=== PATIENT | male | born 1935 | race African-American/Black ===

== ENCOUNTER → 2016-10-06 | Outpatient (CLI) | payer OTHER, MEDICAID ==
[2016-04-16 23:15] VITALS: BP 187/81
--- NOTE | 2016-10-06 12:30 | RAD ---
HISTORY: Abdominal pain Study: Acute abdomen series Comparison: 03/15/2016 Findings: Frontal view of the chest demonstrates chronic sternotomy changes and a right subclavian port cathet er in stable position. Lung volumes are reduced bibasilar atelectasis. No new infiltrate or pneumoth orax. No gross free intraperitoneal air. There are scattered air-fluid levels seen within the large bowel on the upright view as well as some air-fluid levels within small bowel loops. No dilated loops are seen. Mild fecal retention in the rectum. No abnormal calcifications or soft tissue mass identified. There is a stent projected over the mid abdomen. IMPRESSION: 1. Scattered air-fluid levels seen within the small and large bowel without evidence of intestinal o bstruction may reflect ileus/enteritis. 2. Fecal retention in the rectum. Reported By:
== END ==
LOC: RAD 11:57
PROVIDERS: ATTEND Internal Medicine
DX: R10.84 Generalized abdominal pain (principal)
CPT/HCPCS: 74022

== ENCOUNTER 2016-10-07 10:58 | Emergency (ER) | payer OTHER, MEDICAID ==
[2016-10-07 11:25] VITALS: BMI 25.4
[2016-10-07] MEDS ORDERED: DEMEROL INJ IM ONE (11:28)
--- NOTE | 2016-10-07 11:31 | DR.GENAD ---
HPI - PCP Primary Care Physician: goff - Complaint/Symptoms Chief Complaint:: patient stated his abd has been hurting for over a week. enema was done last night by [facility] staff. patient does have a history of pancreatic cancer. - Nurses notes reviewed Nurses Notes Review: Yes - Source History Provided: Patient - Mode of Arrival Mode of Arrival: Ambulatory - Timing Onset of Chief Complaint: 09/27/16 Came on: Gradually - Duration Duration: Intermittent How lon Duration: Days - Location Location: epigastric - Severity Severity: Moderate - Associated Signs and Symptoms Associated Signs and Symptoms: no vomiting PMH - PMH Past Medical History: Yes Past Medical History: Anemia, Coronary Artery Disease, Depression, Diabetes, Dyslipidemia Past Surgical History: Yes Surgical History: CABG/Valve Surgery, Other - Family History History of Family Medical Conditions: Yes Family Medical History: Diabetes Mellitus, Hypertension - Social History Does patient currently use any type of tobacco product: No Have you used tobacco products in the last 12 months: No Type of Tobacco Use: None Does any household member use tobacco: No Alcohol Use: None Do you use any recreational Drugs:: No Lives With: Family Lives Where: Residential - infectious screening In the last 2 months have you had wt loss of >10#?: NO Have you had fever, night sweats or hemotysis?: No Have you traveled outside the country in the last 6 months?: No Isolation: Standard ROS - Review of Systems Constitutional: No Symptoms Reported Eyes: No Symptoms Reported ENTM: No Symptoms Reported Respiratoy: No Symptoms Reported Cardiovascular: No Symptoms Reported Gastrointestinal/Abdominal: Abdominal Pain Genitourinary: No Symptoms Reported Neurological: No Symptoms Reported Musculoskeletal: No Symptoms Reported Integumentary: No Symptoms Reported Hematologic/Lymphatic: No Symptoms Reported Endocrine: No Symptoms Reported Psychiatric: Depression PE - Vital Signs Vitals: Temperature 97.5 F Pulse Rate 75 Respiratory Rate 16 Blood Pressure [Left Arm] 187/81 Blood Pressure [Right Arm] 121/59 Blood Pressure 154/77 O2 Sat by Pulse Oximetry 99 - General Limitations: No Limitations General Appearance: Alert, In No Apparent Distress - Head Head Exam: Normal Inspection - Eyes Eye exam: Normal Appearance, EOMI. negative: Scleral Icterus, Conjunctival Injection - ENT ENT Exam: Normal Exam, Normal Oropharynx External Ear Exam: Normal External Inspection Throat Exam: Normal Inspection - Neck Neck Exam: Normal Inspection, Full ROM, Trachea Midline - Chest Chest Inspection: Normal Inspection - Respiratory Respiratory Exam: Normal Lung Sounds Bilat. negative: Accessory Muscle Use, Respiratory Distress Respiratory Exam: Bilateral Clear to Auscultation - Cardiovascular Cardiovascular Exam: Regular Rate - Abdominal Exam Abdominal Exam: Soft, Distention, Tenderness (epigastric pain). negative: Guarding - Extremities Extremities Exam: Normal Inspection, Full ROM - Back Back Exam: Normal Inspection - Neurologic Neurological Exam: Alert, Oriented X3, CN II-XII Intact - Psychiatric Psychiatric Exam: Depressed - Skin Skin Exam: Intact, Normal Color ROR - Labs Reviewed Result Diagrams: 10/07/16 12:21 10/07/16 12:21 Laboratory: WBC 8.3 X10^3/uL (3.6-10.0) 10/07/16 12:21 RBC 3.37 X10^6/uL (4.7-6.0) L 10/07/16 12:21 Hgb 10.0 g/dL (13.5-18.0) L 10/07/16 12:21 Hct 30.9 % (42.0-54.0) L 10/07/16 12:21 MCV 91.8 fL (80.0-100.0) 10/07/16 12:21 MCH 29.8 pg (27.0-34.0) 10/07/16 12:21 MCHC 32.4 g/dL (33.0-35.0) L 10/07/16 12:21 RDW 13.5 % (11.6-16.5) 10/07/16 12:21 Plt Count 206 X10^3/uL (150.0-450.0) 10/07/16 12:21 MPV 10.2 fL (7.4-11.0) 10/07/16 12:21 Neut % 62.2 % (42.0-75.0) 10/07/16 12:21 Lymph % 22.7 % (21.0-51.0) 10/07/16 12:21 [place] % 12.5 % (0.0-13.0) 10/07/16 12:21 Eos % 1.3 % (0.9-2.9) 10/07/16 12:21 Baso % 1.3 % (0.2-1.0) H 10/07/16 12:21 Neut # 5.1 x10^3/uL (2.2-4.8) H 10/07/16 12:21 Lymph # 1.9 X10^3/uL (1.3-2.9) 10/07/16 12:21 [place] # 1.0 x10^3/uL (0.3-0.8) H 10/07/16 12:21 Eos # 0.1 x10^3/uL (0.0-0.2) 10/07/16 12:21 Baso # 0.1 X10^3/uL (0.0-0.1) 10/07/16 12:21 Absolute Nucleated RBC 0.0 /100WBC 10/07/16 12:21 Sodium 137 mmol/L (136-145) 10/07/16 12:21 Corrected Sodium 141 mmol/L (136-145) 10/07/16 12:21 Potassium 4.8 mmol/L (3.5-5.1) 10/07/16 12:21 Chloride 105 mmol/L (98-107) 10/07/16 12:21 Carbon Dioxide 19.9 mmol/L (21-32) L 10/07/16 12:21 BUN 60 mg/dL (7-18) H 10/07/16 12:21 Creatinine 2.78 mg/dL (0.70-1.30) H 10/07/16 12:21 Est GFR (MDRD) Af Amer 28 (>60) L 10/07/16 12:21 Est GFR (MDRD) Non-Af 24 (>60) L 10/07/16 12:21 Glucose 267 mg/dL (65-99) H 10/07/16 12:21 Calcium 9.1 mg/dL (8.5-10.1) 10/07/16 12:21 Corrected Calcium 10.1 mg/dL (8.5-10.1) 10/07/16 12:21 Total Bilirubin 0.40 mg/dL (0.2-1.0) 10/07/16 12:21 AST 18 Units/L (15-37) 10/07/16 12:21 ALT 22 Units/L (12-78) 10/07/16 12:21 Alkaline Phosphatase 93 Units/L (46-116) 10/07/16 12:21 Total Protein 7.6 g/dL (6.4-8.2) 10/07/16 12:21 Albumin 2.8 g/dL (3.4-5.0) L 10/07/16 12:21 Globulin 4.8 g/dL (2.5-4.5) H 10/07/16 12:21 Albumin/Globulin Ratio 0.6 Ratio (1.1-2.1) L 10/07/16 12:21 - XRAY XRAY Interpreted by: Radiologist XRAY Findings: AAS: no free air, no airfluid levels - Diagnosis Discharge Problem: Abdominal pain Qualifiers: Abdominal location: epigastric Qualified Code(s): R10.13 - Epigastric pain - Discharge Plan Condition: Stable - Follow ups/Referrals Follow ups/Referrals: SOMMER GOFF [Primary Care Provider] - 3 days - Instructions
[2016-10-07] MEDS ORDERED: DEMEROL INJ ONE (11:34)
--- NOTE | 2016-10-07 12:09 | RAD ---
HISTORY: Abdominal pain Study: Acute abdominal series Comparison: None Findings: The trachea is midline. The cardiac silhouette is unremarkable. The lungs are clear without focal infiltrate or effusion. The bony thorax is unremarkable. There is a port present on the right. The patient is status post median sternotomy and CABG. Flat plate and upright evaluation of the abdomen demonstrates a nonspecific bowel gas pattern. No pn eumoperitoneum is identified.. No pathological soft tissue mass or calcification can be observed. The bony structures are grossly intact. IMPRESSION: 1. No acute cardiopulmonary disease. 2. No evidence for acute abdominal pathology identified. Reported By:
[2016-10-07 12:14] VITALS: BP 154/77
[2016-10-07 12:30] LABS: BASOPHILS # (AUTO) 0.1 X10^3/uL (0.0-0.1); BASOPHILS % (AUTO) 1.3 % (0.2-1.0); EOSINOPHILS # (AUTO) 0.1 x10^3/uL (0.0-0.2); EOSINOPHILS % (AUTO) 1.3 % (0.9-2.9); HEMATOCRIT 30.9 % (42.0-54.0); LYMPHOCYTES # (AUTO) 1.9 X10^3/uL (1.3-2.9); LYMPHOCYTES % (AUTO) 22.7 % (21.0-51.0); MEAN CORPUSCULAR HEMOGLOBIN 29.8 pg (27.0-34.0); MEAN CORPUSCULAR HGB CONC 32.4 g/dL (33.0-35.0); MEAN CORPUSCULAR VOLUME 91.8 fL (80.0-100.0); MEAN PLATELET VOLUME 10.2 fL (7.4-11.0); MONOCYTES % (AUTO) 12.5 % (0.0-13.0); NEUTROPHILS # (AUTO) 5.1 x10^3/uL (2.2-4.8); NEUTROPHILS % (AUTO) 62.2 % (42.0-75.0); PLATELET COUNT 206 X10^3/uL (150.0-450.0); RED BLOOD COUNT 3.37 X10^6/uL (4.7-6.0); RED CELL DISTRIBUTION WIDTH 13.5 % (11.6-16.5); WHITE BLOOD COUNT 8.3 X10^3/uL (3.6-10.0)
[2016-10-07 12:41] LABS: ALBUMIN 2.8 g/dL (3.4-5.0); CALCIUM 9.1 mg/dL (8.5-10.1); CARBON DIOXIDE 19.9 mmol/L (21-32); COR CA(FOR HYPOALB) 10.1 mg/dL (8.5-10.1); CREATININE 2.78 mg/dL (0.70-1.30); TOTAL PROTEIN 7.6 g/dL (6.4-8.2)
== END 2016-10-07 13:20 | disposition home or self-care (01) ==
LOC: ER 10:58
DX: R10.13 Epigastric pain (principal)
CPT/HCPCS: 36415; 74022; 80053; 85025; 96372; 99282; J2175

== ENCOUNTER → 2016-10-08 | Outpatient (CLI) | payer OTHER, MEDICAID ==
[2016-10-07 12:14] VITALS: BP 154/77
[2016-10-08 17:07] LABS: BILIRUBIN,URINE NEGATIVE (NEGATIVE); BLOOD/HEMOGLOBIN,URINE 1+ (NEGATIVE); GLUCOSE, URINE NEGATIVE (NEGATIVE); KETONES,URINE NEGATIVE (NEGATIVE); LEUKOCYTE ESTERASE ,URINE 1+ (NEGATIVE); NITRITES,URINE NEGATIVE (NEGATIVE); PROTEIN,URINE 2+ (NEGATIVE); UROBILINOGEN,URINE NORMAL (NORMAL)
[2016-10-08 17:17] LABS: APPEARANCE,URINE HAZY (CLEAR); BACTERIA,URINE TRACE /HPF (NEGATIVE); COLOR,URINE YELLOW (YELLOW); RBC,URINE 0-2 /HPF (NEGATIVE); SQUAMOUS EPITHELIAL CELL,UR NEGATIVE /HPF (NEGATIVE)
== END ==
LOC: LTCLAB 16:54
PROVIDERS: ATTEND Internal Medicine
DX: R41.82 Altered mental status, unspecified (principal)
CPT/HCPCS: 81001

== ENCOUNTER 2016-10-09 12:54 | Inpatient (IN) | payer OTHER, MEDICAID ==
[2016-10-09] MEDS ORDERED: DILAUDID INJ IVP PRN (13:19)
[2016-10-09] MEDS ORDERED: TYLENOL 325 MG TAB PO PRN (13:19)
[2016-10-09] MEDS ORDERED: MORPHINE SULFATE INJ 2 MG IVP PRN (13:19)
[2016-10-09 14:12] LABS: BASOPHILS # (AUTO) 0.1 X10^3/uL (0.0-0.1); BASOPHILS % (AUTO) 0.9 % (0.2-1.0); EOSINOPHILS # (AUTO) 0.1 x10^3/uL (0.0-0.2); EOSINOPHILS % (AUTO) 0.9 % (0.9-2.9); HEMATOCRIT 30.8 % (42.0-54.0); HEMOGLOBIN 9.9 g/dL (13.5-18.0); LYMPHOCYTES # (AUTO) 1.3 X10^3/uL (1.3-2.9); LYMPHOCYTES % (AUTO) 13.1 % (21.0-51.0); MEAN CORPUSCULAR HEMOGLOBIN 29.6 pg (27.0-34.0); MEAN CORPUSCULAR HGB CONC 32.2 g/dL (33.0-35.0); MEAN CORPUSCULAR VOLUME 91.8 fL (80.0-100.0); MEAN PLATELET VOLUME 10.2 fL (7.4-11.0); MONOCYTES # (AUTO) 1.3 x10^3/uL (0.3-0.8); NEUTROPHILS # (AUTO) 7.3 x10^3/uL (2.2-4.8); NEUTROPHILS % (AUTO) 72.1 % (42.0-75.0); PLATELET COUNT 273 X10^3/uL (150.0-450.0); RED BLOOD COUNT 3.36 X10^6/uL (4.7-6.0); RED CELL DISTRIBUTION WIDTH 13.6 % (11.6-16.5); WHITE BLOOD COUNT 10.1 X10^3/uL (3.6-10.0)
[2016-10-09 14:25] LABS: ALBUMIN 2.6 g/dL (3.4-5.0); COR CA(FOR HYPOALB) 10.1 mg/dL (8.5-10.1); CREATININE 3.21 mg/dL (0.70-1.30); TOTAL PROTEIN 7.6 g/dL (6.4-8.2)
[2016-10-09 14:32] VITALS: BMI 22.4
--- NOTE | 2016-10-09 14:58 | CT ---
CT abdomen without contrast Indication: Pancreatic mass, abdominal distention and Comparison: Abdominal series 10/07/[address] available for comparison. Technique: CT images of the abdomen were obtained without contrast. Findings: There is a chronic appearing fracture deformity of the L1 vertebral body. Images through the lower chest demonstrate bibasilar atelectasis with small left pleural effusion. The heart is mil dly enlarged. Evaluation is limited due to lack of intravenous contrast and beam hardening artifact from the patie nt's arms. A common duct stent is in place, with moderate amount of pneumobilia and intraluminal gal lbladder gas, consistent with stent patency. No obvious liver mass identified. The spleen, stomach, adrenals, and kidneys demonstrate no acute abnormality. Discrete pancreatic mass is not identified. There is colonic diverticulosis, without convincing acute diverticulitis. No significant bowel dilat ation is observed. There is a moderate amount of ascites. No adenopathy identified. There is aortoil iac atherosclerosis, without evidence for aneurysm. Impression: 1. Moderate volume ascites. No acute inflammatory or obstructive process identified, within the limi tations of a noncontrast study. 2. A common duct stent is in place and is patent. 3. Bibasilar atelectasis with small left pleural effusion. 4. Diverticulosis and other findings as above. Reported By:
[2016-10-09] MEDS: NS 1000 ML 1,000 ML IV SCH (15:15)
[2016-10-09] MEDS: HUMULIN R SUBCUT PRN (17:14)
[2016-10-09] MEDS: PROTONIX TAB 40 MG PO SCH (17:14)
[2016-10-09] MEDS: SNACK - Diabetic Appropriate PO SCH (21:11)
[2016-10-10] MEDS: NS 1000 ML 1,000 ML IV SCH ×3 (00:22→19:55)
[2016-10-10 02:55] LABS: APPEARANCE,URINE SLIGHTLY HAZY (CLEAR); COLOR,URINE YELLOW (YELLOW)
[2016-10-10 02:56] LABS: BILIRUBIN,URINE NEGATIVE (NEGATIVE); BLOOD/HEMOGLOBIN,URINE NEGATIVE (NEGATIVE); GLUCOSE, URINE NEGATIVE (NEGATIVE); KETONES,URINE NEGATIVE (NEGATIVE); NITRITES,URINE NEGATIVE (NEGATIVE); PROTEIN,URINE 2+ (NEGATIVE); UROBILINOGEN,URINE NORMAL (NORMAL)
[2016-10-10 02:57] LABS: BACTERIA,URINE 1+ /HPF (NEGATIVE); LEUKOCYTE ESTERASE ,URINE 2+ (NEGATIVE); RBC,URINE NONE SEEN /HPF (NEGATIVE); SQUAMOUS EPITHELIAL CELL,UR FEW /HPF (NEGATIVE)
[2016-10-10 06:30] LABS: BASOPHILS % (AUTO) 0.3 % (0.2-1.0); EOSINOPHILS # (AUTO) 0.1 x10^3/uL (0.0-0.2); EOSINOPHILS % (AUTO) 0.9 % (0.9-2.9); HEMATOCRIT 31.8 % (42.0-54.0); HEMOGLOBIN 10.4 g/dL (13.5-18.0); LYMPHOCYTES # (AUTO) 1.5 X10^3/uL (1.3-2.9); MEAN CORPUSCULAR HEMOGLOBIN 30.1 pg (27.0-34.0); MEAN CORPUSCULAR HGB CONC 32.8 g/dL (33.0-35.0); MEAN CORPUSCULAR VOLUME 91.7 fL (80.0-100.0); MEAN PLATELET VOLUME 10.2 fL (7.4-11.0); MONOCYTES # (AUTO) 1.6 x10^3/uL (0.3-0.8); MONOCYTES % (AUTO) 15.1 % (0.0-13.0); NEUTROPHILS # (AUTO) 7.4 x10^3/uL (2.2-4.8); NEUTROPHILS % (AUTO) 69.7 % (42.0-75.0); PLATELET COUNT 284 X10^3/uL (150.0-450.0); RED BLOOD COUNT 3.47 X10^6/uL (4.7-6.0); RED CELL DISTRIBUTION WIDTH 13.4 % (11.6-16.5); WHITE BLOOD COUNT 10.7 X10^3/uL (3.6-10.0)
[2016-10-10 06:51] LABS: ALBUMIN 2.6 g/dL (3.4-5.0); CALCIUM 9.3 mg/dL (8.5-10.1); CARBON DIOXIDE 18.7 mmol/L (21-32); COR CA(FOR HYPOALB) 10.4 mg/dL (8.5-10.1); CREATININE 3.23 mg/dL (0.70-1.30); TOTAL PROTEIN 7.5 g/dL (6.4-8.2)
[2016-10-10] MEDS: ZOFRAN INJ 4 MG VIAL IVP PRN (08:17)
[2016-10-10] MEDS: PROTONIX TAB 40 MG PO SCH ×2 (08:17→15:30)
[2016-10-10] MEDS: PERCOCET TAB 5/325 MG PO PRN ×2 (10:19→19:28)
[2016-10-10] MEDS: HUMULIN R SUBCUT PRN ×3 (12:24→21:57)
[2016-10-10 13:28] LABS: BILIRUBIN,URINE NEGATIVE (NEGATIVE); BLOOD/HEMOGLOBIN,URINE 1+ (NEGATIVE); GLUCOSE, URINE NEGATIVE (NEGATIVE); KETONES,URINE NEGATIVE (NEGATIVE); LEUKOCYTE ESTERASE ,URINE 1+ (NEGATIVE); NITRITES,URINE NEGATIVE (NEGATIVE); PROTEIN,URINE 2+ (NEGATIVE); UROBILINOGEN,URINE NORMAL (NORMAL)
[2016-10-10 13:38] LABS: APPEARANCE,URINE CLEAR (CLEAR); BACTERIA,URINE NEGATIVE /HPF (NEGATIVE); COLOR,URINE YELLOW (YELLOW); RBC,URINE 0 - 2 /HPF (NEGATIVE); SQUAMOUS EPITHELIAL CELL,UR RARE /HPF (NEGATIVE)
[2016-10-10 13:39] LABS: AMORPHOUS SEDIMENT,UR 1+ /HPF (NEGATIVE); HYALINE CASTS, URINE FEW /LPF (NEGATIVE)
[2016-10-10] MEDS ORDERED: ULTRAM PO PRN (14:04)
[2016-10-10] MEDS ORDERED: DEMEROL INJ IM PRN (14:04)
[2016-10-10] MEDS: CHRONULAC PO SCH (15:30)
[2016-10-10] MEDS: PLAVIX PO SCH (15:31)
[2016-10-10] MEDS: SNACK - Diabetic Appropriate PO SCH (20:56)
[2016-10-10] MEDS ORDERED: [UNRECOGNIZED DRUG - REMARK] PO SCH (21:00)
[2016-10-10] MEDS ORDERED: [UNRECOGNIZED DRUG - OTHER] PO SCH (21:00)
[2016-10-10] MEDS ORDERED: ZYRTEC TAB 10 MG PO SCH (21:00)
[2016-10-10] MEDS ORDERED: LEXAPRO ONE (21:13)
[2016-10-10] MEDS: FLOMAX PO SCH (21:56)
[2016-10-10] MEDS: LEXAPRO PO SCH (21:57)
[2016-10-11 00:38] LABS: HEMATOCRIT 29.8 % (42.0-54.0); HEMOGLOBIN 9.5 g/dL (13.5-18.0)
[2016-10-11] MEDS: PERCOCET TAB 5/325 MG PO PRN ×2 (05:45→14:49)
[2016-10-11] MEDS: NS 1000 ML 1,000 ML IV SCH (05:45)
[2016-10-11 05:48] LABS: ALBUMIN 2.6 g/dL (3.4-5.0); CALCIUM 9.2 mg/dL (8.5-10.1); CARBON DIOXIDE 17.9 mmol/L (21-32); COR CA(FOR HYPOALB) 10.3 mg/dL (8.5-10.1); CREATININE 3.44 mg/dL (0.70-1.30); TOTAL PROTEIN 7.4 g/dL (6.4-8.2)
[2016-10-11] MEDS: HUMULIN R SUBCUT PRN ×4 (06:14→21:11)
[2016-10-11 06:52] LABS: BASOPHILS # (AUTO) 0.1 X10^3/uL (0.0-0.1); BASOPHILS % (AUTO) 0.5 % (0.2-1.0); EOSINOPHILS # (AUTO) 0.1 x10^3/uL (0.0-0.2); EOSINOPHILS % (AUTO) 0.5 % (0.9-2.9); HEMATOCRIT 27.8 % (42.0-54.0); HEMOGLOBIN 8.8 g/dL (13.5-18.0); LYMPHOCYTES # (AUTO) 1.4 X10^3/uL (1.3-2.9); LYMPHOCYTES % (AUTO) 10.2 % (21.0-51.0); MEAN CORPUSCULAR HEMOGLOBIN 29.5 pg (27.0-34.0); MEAN CORPUSCULAR HGB CONC 31.7 g/dL (33.0-35.0); MEAN PLATELET VOLUME 10.4 fL (7.4-11.0); MONOCYTES % (AUTO) 14.2 % (0.0-13.0); NEUTROPHILS # (AUTO) 10.6 x10^3/uL (2.2-4.8); NEUTROPHILS % (AUTO) 74.6 % (42.0-75.0); PLATELET COUNT 323 X10^3/uL (150.0-450.0); RED BLOOD COUNT 2.99 X10^6/uL (4.7-6.0); RED CELL DISTRIBUTION WIDTH 13.5 % (11.6-16.5); WHITE BLOOD COUNT 14.1 X10^3/uL (3.6-10.0)
--- NOTE | 2016-10-11 07:21 | RAD ---
HISTORY: Shortness of breath, pleural effusion Study: Chest one view Comparison: October 07, 2016, CT abdomen pelvis October 09, 2016 Findings: The patient is status post median sternotomy. There is a right-sided port present. The heart is enla rged. No congestive heart failure is noted. The lungs are hypoinflated but free of acute infiltrates . A small left pleural effusion is present. The bony thorax is unremarkable. IMPRESSION: Lungs hypoinflated but free of acute infiltrates Small left pleural effusion Reported By:
--- NOTE | 2016-10-11 07:23 | US ---
Renal Sonogram Indication: Chronic renal failure with decreased urine output Technique: Multiple pacheco scale and Doppler images of the right and left kidneys and bladder were obt ained Findings: The right kidney measures 8.6 cm. The left kidney measures 9.0 cm. Neither kidney demonstrates evidence of nephrolithiasis, solid mass or hydronephrosis. There is bord leida increased echogenicity within both renal cortices. There is moderate amount of abdominal ascites. Urinary bladder is unremarkable. IMPRESSION: Mildly increased echogenicity of bilateral renal cortices and decreased size of the kidneys consiste nt with chronic medical renal disease. No evidence of hydronephrosis. Moderate abdominal ascites. Reported By:
[2016-10-11 07:54] LABS: PLATELET MORPHOLOGY COMMENT NORMAL (NORMAL)
[2016-10-11] MEDS: CHRONULAC PO SCH (09:35)
[2016-10-11] MEDS: PLAVIX PO SCH (09:35)
[2016-10-11] MEDS: PROTONIX TAB 40 MG PO SCH ×2 (09:35→09:39)
[2016-10-11] MEDS ORDERED: DEMEROL INJ IM PRN (10:28)
[2016-10-11] MEDS ORDERED: NS 1000 ML 1,000 ML IV SCH (16:00)
[2016-10-11] MEDS: LASIX IVP SCH ×2 (16:36→21:00)
[2016-10-11] MEDS: ZOFRAN INJ 4 MG VIAL IVP PRN (17:31)
[2016-10-11] MEDS: PHENERGAN INJ 25 MG IVP PRN (18:33)
[2016-10-11] MEDS ORDERED: LEXAPRO ONE (20:48)
[2016-10-11] MEDS: LEXAPRO PO SCH (21:00)
[2016-10-11] MEDS ORDERED: ZYRTEC TAB 10 MG PO SCH (21:00)
[2016-10-11] MEDS: FLOMAX PO SCH (21:01)
[2016-10-11] MEDS: ULTRAM PO SCH (21:01)
[2016-10-11] MEDS: SNACK - Diabetic Appropriate PO SCH (22:42)
[2016-10-12] MEDS: ZOFRAN INJ 4 MG VIAL IVP PRN ×2 (04:02→12:00)
[2016-10-12 05:29] LABS: BASOPHILS % (AUTO) 0.2 % (0.2-1.0); HEMOGLOBIN 9.4 g/dL (13.5-18.0); LYMPHOCYTES # (AUTO) 0.8 X10^3/uL (1.3-2.9); LYMPHOCYTES % (AUTO) 5.6 % (21.0-51.0); MEAN CORPUSCULAR HEMOGLOBIN 29.7 pg (27.0-34.0); MEAN CORPUSCULAR HGB CONC 32.5 g/dL (33.0-35.0); MEAN CORPUSCULAR VOLUME 91.5 fL (80.0-100.0); MONOCYTES # (AUTO) 1.3 x10^3/uL (0.3-0.8); MONOCYTES % (AUTO) 9.3 % (0.0-13.0); NEUTROPHILS # (AUTO) 12.1 x10^3/uL (2.2-4.8); NEUTROPHILS % (AUTO) 84.9 % (42.0-75.0); PLATELET COUNT 355 X10^3/uL (150.0-450.0); RED BLOOD COUNT 3.18 X10^6/uL (4.7-6.0); RED CELL DISTRIBUTION WIDTH 13.3 % (11.6-16.5); WHITE BLOOD COUNT 14.3 X10^3/uL (3.6-10.0)
[2016-10-12 05:30] LABS: ALBUMIN 2.7 g/dL (3.4-5.0); CALCIUM 9.8 mg/dL (8.5-10.1); CARBON DIOXIDE 15.5 mmol/L (21-32); COR CA(FOR HYPOALB) 10.8 mg/dL (8.5-10.1); CREATININE 3.47 mg/dL (0.70-1.30); TOTAL PROTEIN 7.9 g/dL (6.4-8.2)
[2016-10-12] MEDS: HUMULIN R SUBCUT PRN ×2 (05:31→13:18)
[2016-10-12] MEDS: PHENERGAN INJ 25 MG IVP PRN (06:11)
--- NOTE | 2016-10-12 06:58 | RAD ---
HISTORY: Abdominal pain, shortness of breath, abdominal distension Study: Chest one view Comparison: October 11, 2016 Findings: There is a port present on the right. The patient is status post median sternotomy. The heart is wit hin normal limits in size. The aorta is ectatic and calcified. The lungs are hypoinflated but free o f acute infiltrates. The previously noted left pleural effusion is no longer identified. IMPRESSION: Lungs hypoinflated but free of acute infiltrates Reported By:
--- NOTE | 2016-10-12 08:43 | PCM.PROG ---
Progress Note - Progress Note for Day of Date: 10/11/16 - Subjective Subjective: 81 BM ADMITTED FROM [facility] WITH CO ABDOMINAL PAIN AND DISTENTION. PT HAS HX PANCREATIC MASS. PT HAS ABDOMINAL ASCITES. DR ARRIAGA DISCUSSED PLAN OF CARE WITH DR HARRISON AND PT'S FAMILY. CONTINUE PAIN CONTROL, CURRENT MEDS - Past Medical Family Social History Past Med/Fam/Surg Hx: No changes since H&P Allergies: Allergies Aspirin Allergy (Verified 02/04/16 13:57) Dextromethorphan [From NyQuil Nighttime Cold/Flu Medicine] Allergy (Verified 13:57) Doxylamine [From NyQuil Nighttime Cold/Flu Medicine] Allergy (Verified 02/04/16 13:57) Ethanol [From NyQuil Nighttime Cold/Flu Medicine] Allergy (Verified 02/04/16 13: 57) Hydrocodone Allergy (Verified 02/04/16 13:57) Methadone Allergy (Verified 02/04/16 13:57) Penicillins Allergy (Verified 02/04/16 13:57) Pseudoephedrine [From NyQuil Nighttime Cold/Flu Medicine] Allergy (Verified 13:57) Sulfa Antibiotics Allergy (Verified 02/04/16 13:57) - Review of Systems ROS: No change since H&P - Vital Signs and I&O's Vital Signs: Temperature 98.4 F Pulse Rate [Left Brachial] 115 Pulse Rate [Right Brachial] 68 Respiratory Rate 20 Blood Pressure [Left Arm] 178/88 Blood Pressure [Right Arm] 142/68 Blood Pressure 154/77 O2 Sat by Pulse Oximetry 93 Intake and Output: Intake & Output 10/09/16 10/10/16 10/11/16 10/12/16 11:59 11:59 11:59 11:59 Intake Total 786 1626 1300 Output Total 839 730 6636 Balance 436 1076 -400 - Physical Exam Oriented: Time Eyes: Normal Ear: Normal Nose: Normal Throat: Dry Respiratory: Diminished Cardiovascular: Normal : Normal Auscultation: Bowel Sounds: Decreased Palpation: Other (TIGHT, DISTENDED) Tenderness: Diffuse Skin: Decreased Turgur Musculoskeletal: Back:Lumbar Mood Description: Calm Speech Pattern: Clear, Appropriate - Laboratory and Diagnostics Result Diagrams: 10/12/16 03:45 10/12/16 03:45 Labs: 10/09/16 02:36 Urine,Clean Catch Urine Culture - Preliminary Laboratory WBC 14.3 X10^3/uL (3.6-10.0) H 10/12/16 03:45 RBC 3.18 X10^6/uL (4.7-6.0) L 10/12/16 03:45 Hgb 9.4 g/dL (13.5-18.0) L 10/12/16 03:45 Hct 29.0 % (42.0-54.0) L 10/12/16 03:45 MCV 91.5 fL (80.0-100.0) 10/12/16 03:45 MCH 29.7 pg (27.0-34.0) 10/12/16 03:45 MCHC 32.5 g/dL (33.0-35.0) L 10/12/16 03:45 RDW 13.3 % (11.6-16.5) 10/12/16 03:45 Plt Count 355 X10^3/uL (150.0-450.0) 10/12/16 03:45 Plt Count Comment Adequate (ADEQUATE) 10/11/16 04:30 MPV 10.0 fL (7.4-11.0) 10/12/16 03:45 Neut % 84.9 % (42.0-75.0) H 10/12/16 03:45 Lymph % 5.6 % (21.0-51.0) L 10/12/16 03:45 [place] % 9.3 % (0.0-13.0) 10/12/16 03:45 Eos % 0.0 % (0.9-2.9) L 10/12/16 03:45 Baso % 0.2 % (0.2-1.0) 10/12/16 03:45 Neut # 12.1 x10^3/uL (2.2-4.8) H 10/12/16 03:45 Lymph # 0.8 X10^3/uL (1.3-2.9) L 10/12/16 03:45 [place] # 1.3 x10^3/uL (0.3-0.8) H 10/12/16 03:45 Eos # 0.0 x10^3/uL (0.0-0.2) 10/12/16 03:45 Baso # 0.0 X10^3/uL (0.0-0.1) 10/12/16 03:45 Absolute Nucleated RBC 0.0 /100WBC 10/12/16 03:45 Plt Morphology Comment Normal (NORMAL) 10/11/16 04:30 RBC Morphology Normal (NORMAL) 10/11/16 04:30 Sodium 140 mmol/L (136-145) 10/12/16 03:45 Corrected Sodium 144 mmol/L (136-145) 10/12/16 03:45 Potassium 5.1 mmol/L (3.5-5.1) 10/12/16 03:45 Chloride 106 mmol/L (98-107) 10/12/16 03:45 Carbon Dioxide 15.5 mmol/L (21-32) L 10/12/16 03:45 BUN 84 mg/dL (7-18) H 10/12/16 03:45 Creatinine 3.47 mg/dL (0.70-1.30) H 10/12/16 03:45 Est GFR (MDRD) Af Amer 22 (>60) L 10/12/16 03:45 Est GFR (MDRD) Non-Af 18 (>60) L 10/12/16 03:45 Glucose 249 mg/dL (65-99) H 10/12/16 03:45 Calcium 9.8 mg/dL (8.5-10.1) 10/12/16 03:45 Corrected Calcium 10.8 mg/dL (8.5-10.1) H 10/12/16 03:45 Total Bilirubin 0.40 mg/dL (0.2-1.0) 10/12/16 03:45 AST 19 Units/L (15-37) 10/12/16 03:45 ALT 22 Units/L (12-78) 10/12/16 03:45 Alkaline Phosphatase 96 Units/L (46-116) 10/12/16 03:45 Total Protein 7.9 g/dL (6.4-8.2) 10/12/16 03:45 Albumin 2.7 g/dL (3.4-5.0) L 10/12/16 03:45 Globulin 5.2 g/dL (2.5-4.5) H 10/12/16 03:45 Albumin/Globulin Ratio 0.5 Ratio (1.1-2.1) L 10/12/16 03:45 Amylase 18 Units/L (25-115) L 10/12/16 03:45 Lipase 45 Units/L (73-393) L 10/12/16 03:45 Specimen Type Catherized urine 10/10/16 13:12 Urine Color Yellow (YELLOW) 10/10/16 13:12 Urine Appearance Clear (CLEAR) 10/10/16 13:12 Urine pH 5.0 (5.0 - 8.0) 10/10/16 13:12 Ur Specific [place] 1.015 (1.000-1.030) 10/10/16 13:12 Urine Protein 2+ (NEGATIVE) 10/10/16 13:12 Urine Glucose (UA) Negative (NEGATIVE) 10/10/16 13:12 Urine Ketones Negative (NEGATIVE) 10/10/16 13:12 Urine Occult Blood 1+ (NEGATIVE) 10/10/16 13:12 Urine Nitrite Negative (NEGATIVE) 10/10/16 13:12 Urine Bilirubin Negative (NEGATIVE) 10/10/16 13:12 Urine Urobilinogen Normal (NORMAL) 10/10/16 13:12 Ur Leukocyte Esterase 1+ (NEGATIVE) 10/10/16 13:12 Urine RBC 0 - 2 /HPF (NEGATIVE) 10/10/16 13:12 Urine WBC 0 - 3 /HPF (NEGATIVE) 10/10/16 13:12 Ur Squamous Epith Cells Rare /HPF (NEGATIVE) 10/10/16 13:12 Amorphous Sediment 1+ /HPF (NEGATIVE) 10/10/16 13:12 Urine Bacteria Negative /HPF (NEGATIVE) 10/10/16 13:12 Hyaline Casts Few /LPF (NEGATIVE) 10/10/16 13:12 Ur Culture Indicated? No/not indicated 10/10/16 13:12 Stool Description Ifob collection tube 10/10/16 13:12 Stl Occult Blood (IFOB) Negative (NEGATIVE) 10/10/16 13:12 - Plan (1) Abdominal pain Status: Acute Qualifiers: Abdominal location: A Plan: INCREASED PAIN DUE TO ASCITES, HX PANCREATIC MASS. PLAN TO CONTINUE CURRENT MEDS. REPEAT AM LABS, DISCUSSED POSSIBLE PARACENTESIS, DR LARA CONSULTING WITH DR HARRISON ABOUT PLAN OF CARE, FAMILY AWARE (2) CHF (congestive heart failure) Status: Chronic Qualifiers: Congestive heart failure type: C Congestive heart failure chronicity: C (3) Chronic kidney disease (CKD) Status: Chronic Qualifiers: Chronic kidney disease stage: C (4) Dementia Status: Chronic Qualifiers: Dementia type: D Alzheimer's disease onset: A Dementia behavioral disturbance: D (5) Diabetes Status: Chronic Qualifiers: Diabetes mellitus type: D Diabetes mellitus complication status: D Diabetes mellitus complication detail: D Diabetic retinopathy severity: D Proliferative retinopathy type: P Diabetes mellitus macular edema: D Diabetes mellitus correction insulin use: D Laterality: L Chronic kidney disease stage: C (6) Hypertension Status: Chronic Qualifiers: Hypertension type: H (7) Pancreatic cancer Status: Chronic Qualifiers: Pancreatic malignancy location: P
--- NOTE | 2016-10-12 09:02 | DR.H&P ---
H&P - History & Physical for Day of: H&P Date: 10/09/16 - Chief Complaint Chief Complaint: Abd pain - Allergies Allergies/Adverse Reactions: Allergies Allergy/AdvReac Type Severity Reaction Status Date / Time Aspirin Allergy Verified 02/04/16 13:57 Dextromethorphan Allergy Verified 02/04/16 13:57 [From NyQuil Nighttime Cold/Flu Medicine] Doxylamine Allergy Verified 02/04/16 13:57 [From NyQuil Nighttime Cold/Flu Medicine] Ethanol Allergy Verified 02/04/16 13:57 [From NyQuil Nighttime Cold/Flu Medicine] Hydrocodone Allergy Verified 02/04/16 13:57 Methadone Allergy Verified 02/04/16 13:57 Penicillins Allergy Verified 02/04/16 13:57 Pseudoephedrine Allergy Verified 02/04/16 13:57 [From NyQuil Nighttime Cold/Flu Medicine] Sulfa Antibiotics Allergy Verified 02/04/16 13:57 - History of Present Illness History of Present Illness: The patient is a 81-year-old black male who is a private patient the long-term resident at [facility]. 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 The patient underwent an ERCP and common bile duct stent placement in [facility] in approximately July 2015. Patient was treated with chemotherapy by his previous oncologist in [facility]. The initial plans were for the patient to complete chemotherapy and then undergo surgical resection with Dr. Zapata at [facility]. The patient was evaluated by Dr. Zapata at [facility] in August [address] scan of the abdomen and pelvis at that facility revealed findings consistent with involvement of the pancreas, peripancreatic soft tissue, mesenteric lymph nodes, retroperitoneal and lesser sac lymph nodes , infiltration of the left adrenal gland, and infiltration of the superior mesenteric vein with narrowing, chronic thrombosis of the splenic vein, and soft tissue encasement of the celiac axis. The patient was subsequently deemed a nonsurgical candidate, and these findings were discussed with the family members by Dr. Zapata. The patient has done relatively well since that time, until the last week the patient has subsequently been complaining of increasing abdominal pain. The nursing staff have stated the patient's complaints of discomfort have worsened over the last 24 hours and the patient is subsequently being admitted for further workup with a suspected diagnosis of malignant ascites. - Past Medical History Past Medical History: Anemia, Coronary Artery Disease, Dementia, Depression, Diabetes, Dyslipidemia Additional Medical History: pancreatic cancer; status postchemotherapy given in [facility] in early 2016 - Past Surgical History Surgical History: CABG/Valve Surgery, Other - Family History Family Medical History: Diabetes Mellitus, Hypertension - Social History Does patient currently use any type of tobacco product: No Have you used tobacco products in the last 12 months: No Type of Tobacco Use: None Alcohol Use: None Drug Use: None - Medications Home Medications: Escitalopram Oxalate 20 mg PO HS 10/09/16 [History Confirmed 10/09/16] Ferrous Sulfate [Fe Tabs] 1 tab PO DAILY 10/09/16 [History Confirmed 10/09/16] Levofloxacin [Levofloxacin] 1 tab PO HS 10/09/16 [History Confirmed 10/09/16] Meperidine HCl [DEMEROL INJ 25 MG VIAL *] 25 mg IM Q6H PRN 10/09/16 [History Confirmed 10/09/16] Metformin HCl [Glucophage] 500 mg PO BID 10/09/16 [History Confirmed 10/09/16] Ondansetron HCl 1 tab PO Q8H 10/09/16 [History Confirmed 10/09/16] Pantoprazole Sodium 40 mg [PROTONIX 40 MG *] 1 tab PO DAILY 10/09/16 [History Confirmed 10/09/16] Risperidone [Risperidone] 1 tab PO BID 10/09/16 [History Confirmed 10/09/16] Simethicone 1 chw PO QID 10/09/16 [History Confirmed 10/09/16] Tramadol HCl 1 tab PO Q6HR PRN 10/09/16 [History Confirmed 10/09/16] - Review of Systems Constitutional: See HPI Eyes: No Symptoms Reported ENT: No Symptoms Reported Respiratory: No Symptoms Reported Cardiovascular: No Symptoms Reported Gastrointestinal: See HPI Genitourinary: No Symptoms Reported Musculoskeletal: No Symptoms Reported Skin: No Symptoms Reported Neurological: No Symptoms Reported - Physical Exam Vital Signs: Temperature 98.4 F Pulse Rate [Left Brachial] 115 Pulse Rate [Right Brachial] 68 Respiratory Rate 20 Blood Pressure [Left Arm] 178/88 Blood Pressure [Right Arm] 142/68 Blood Pressure 154/77 O2 Sat by Pulse Oximetry 93 Oriented: Person, Place Eyes: Normal Ear: Normal Nose: Normal Throat: Normal Respiratory: Clear Throughout Cardiovascular: Normal : Normal Auscultation: Bowel Sounds: Normal Palpation: Other (moderate distention with a fluid wave consistent with ascites. ) Tenderness: Diffuse (tenderness to palpation), Moderate Skin: Normal Musculoskeletal: Normal Psychiatric: Normal Mood Description: Calm Affect: Flat Speech Pattern: Clear, Delayed - Assessment/Plan (1) Ascites Qualifiers: Ascites type: malignant Qualified Code(s): R18.0 - Malignant ascites Narrative Support Text: New onset ascites in the setting of pancreatic cancer; highly suspicious for malignant ascites Status: Acute Plan: 1. Admitted for outpatient observation. 2. CMP and CBC. 3. Amylase lipase. 4. UA C&S. 5. CT scan of abdomen and pelvis without contrast. 6. Normal saline at 100 cc/h. 7. Demerol 12.5 mg IV every 4 hours when necessary for pain. 8. Dilaudid 1 mg IV every 4 hours when necessary for breakthrough pain. 9. Will discuss poor prognosis with family members. 10. Will closely monitor renal function. 11. Further orders to chart (2) Acute on chronic renal failure Status: Acute Plan: As above (3) Abdominal pain Qualifiers: Abdominal location: generalized Qualified Code(s): R10.84 - Generalized abdominal pain Status: Acute Plan: As above. (4) Pancreatic cancer Qualifiers: Pancreatic malignancy location: body of pancreas Qualified Code(s): C25.1 - Malignant neoplasm of body of pancreas Status: Chronic Plan: As above
[2016-10-12] MEDS: CHRONULAC PO SCH (10:35)
[2016-10-12] MEDS: PROTONIX TAB 40 MG PO SCH ×2 (10:35→11:10)
[2016-10-12] MEDS: LASIX IVP SCH (10:35)
[2016-10-12] MEDS: ULTRAM PO SCH (10:35)
[2016-10-12 15:09] VITALS: BP 190/85
== END 2016-10-12 15:00 | disposition short-term general hospital (02) | DRG 436 ==
LOC: MED/SURG 12:54
PROVIDERS: ADMIT Internal Medicine; ATTEND Internal Medicine
DX: C25.1 Malignant neoplasm of body of pancreas (principal); C79.9 Secondary malignant neoplasm of unspecified site; R10.84 Generalized abdominal pain; R14.0 Abdominal distension (gaseous); R18.0 Malignant ascites; N17.8 Other acute kidney failure; I12.9 Hypertensive chronic kidney disease with stage 1 through stage 4 chronic kidney disease, or unspecified chronic kidney disease; N18.9 Chronic kidney disease, unspecified; E86.0 Dehydration; Z92.21 Personal history of antineoplastic chemotherapy; I50.9 Heart failure, unspecified; N28.89 Other specified disorders of kidney and ureter; E11.65 Type 2 diabetes mellitus with hyperglycemia; R26.89 Other abnormalities of gait and mobility; Z78.1 Physical restraint status; N39.0 Urinary tract infection, site not specified; B96.1 Klebsiella pneumoniae [K. pneumoniae] as the cause of diseases classified elsewhere; B96.29 Other Escherichia coli [E. coli] as the cause of diseases classified elsewhere
CPT/HCPCS: 36415; 71010; 74150; 76770; 80053; 81001; 82150; 82270; 83690; 85014; 85018; 85025; 87086; 87088; 87186; A4216; J1815; J1940; J2175; J2405; J2550

== ENCOUNTER → 2016-10-09 | Outpatient (CLI) | payer OTHER, MEDICAID ==
[2016-10-07 12:14] VITALS: BP 154/77
[2016-10-09 11:49] LABS: BASOPHILS % (AUTO) 0.3 % (0.2-1.0); EOSINOPHILS # (AUTO) 0.1 x10^3/uL (0.0-0.2); EOSINOPHILS % (AUTO) 0.8 % (0.9-2.9); HEMATOCRIT 31.5 % (42.0-54.0); HEMOGLOBIN 10.1 g/dL (13.5-18.0); LYMPHOCYTES # (AUTO) 1.1 X10^3/uL (1.3-2.9); LYMPHOCYTES % (AUTO) 10.4 % (21.0-51.0); MEAN CORPUSCULAR HEMOGLOBIN 29.4 pg (27.0-34.0); MEAN CORPUSCULAR HGB CONC 32.1 g/dL (33.0-35.0); MEAN CORPUSCULAR VOLUME 91.7 fL (80.0-100.0); MEAN PLATELET VOLUME 10.3 fL (7.4-11.0); MONOCYTES # (AUTO) 1.4 x10^3/uL (0.3-0.8); MONOCYTES % (AUTO) 13.8 % (0.0-13.0); NEUTROPHILS # (AUTO) 7.6 x10^3/uL (2.2-4.8); NEUTROPHILS % (AUTO) 74.7 % (42.0-75.0); PLATELET COUNT 277 X10^3/uL (150.0-450.0); RED BLOOD COUNT 3.43 X10^6/uL (4.7-6.0); RED CELL DISTRIBUTION WIDTH 13.7 % (11.6-16.5); WHITE BLOOD COUNT 10.1 X10^3/uL (3.6-10.0)
[2016-10-09 12:40] LABS: ALBUMIN 2.8 g/dL (3.4-5.0); CALCIUM 9.5 mg/dL (8.5-10.1); CARBON DIOXIDE 19.3 mmol/L (21-32); COR CA(FOR HYPOALB) 10.5 mg/dL (8.5-10.1); CREATININE 3.21 mg/dL (0.70-1.30); TOTAL PROTEIN 7.6 g/dL (6.4-8.2)
== END ==
LOC: LTCLAB 11:39
PROVIDERS: ATTEND Obstetrics & Gynecology Obstetrics
DX: Z79.899 Other long term (current) drug therapy (principal)
CPT/HCPCS: 36415; 80053; 85025